=== PATIENT | female | born 1975 | race Two or more races ===

== ENCOUNTER 2023-06-25 18:42 | Inpatient (IN) | payer MEDICAID, OTHER ==
[~2023-06-25] VITALS: Ht 134.6 cm; Wt 62.0 kg
[2023-06-25 19:39] LABS: Basophils # (auto) 0.1 10 ^3/uL (0-0.2); Eosinophils # (auto) 0 10 ^3/uL (0-0.8); Hemoglobin 11.4 g/dL (12.2-16.2); Lymphocytes # (auto) 0.7 10 ^3/uL (0.4-5.4)
[2023-06-25 19:42] LABS: Basophils % (auto) 1.3 % (0.0-2.0); Hematocrit 35.4 % (36.0-46.0); Lymphocytes % (auto) 8.6 % (10.0-50.0); Mean Corpuscular Hemoglobin 28.2 pg (28.0-32.0); Mean Corpuscular Hgb Conc. 32.2 g/dL (32.0-36.0); Mean Corpuscular Volume 87.4 fL (80.0-100.0); Monocytes # (auto) 0.9 10 ^3/uL (0-1.3); Monocytes % (auto) 10.8 % (0.0-12.0); Neutrophils # (auto) 6.3 10 ^3/uL (1.6-8.6); Neutrophils % (auto) 79.3 % (37.0-80.0); Nucleated Red Blood Cells % 0.3 %; Red Blood Cells 4.05 10^6/uL (4.0-5.20); White Blood Cell 7.9 10^3/uL (4.4-10.8)
[2023-06-25 19:55] LABS: Alanine Aminotransferase 79 U/L (7-40); Albumin 4.5 g/dL (3.2-4.8); Alkaline Phosphatase 417 U/L (46-116); Anion Gap 21 (5-15); Aspartate Aminotransferase 330 U/L (13-40); BUN/Creatinine Ratio 5.7 (10.0-20.0); Blood Urea Nitrogen 6 mg/dL (9-23); Calcium 9.9 mg/dL (8.5-10.1); Carbon Dioxide 21 mmol/L (20-30); Chloride 94 mmol/L (98-107); Glucose 160 mg/dL (74-106); Sodium 136 mmol/L (136-145)
[2023-06-25 19:56] LABS: Bilirubin, Total 3.2 mg/dL (0.2-1.0); Total Protein 8.4 g/dL (5.7-8.2)
[2023-06-25 19:58] LABS: INR 1.23 (0.9-1.15); Partial Thromboplastin Time 27.1 SEC (24.5-34.5); Prothrombin Time 12.8 sec (9.3-11.8)
[2023-06-25] MEDS: ACETAMINOPHEN 325 MG TAB PO ONE (20:00)
[2023-06-25] MEDS: LORazepam 2MG/ML-1ML VIAL IV ONE (20:00)
[2023-06-25] MEDS: chlordiazePOXIDE HCL 25 MG CAP PO ONE (20:00)
[2023-06-25 21:18] LABS: Anisocytosis Slight; Platelet Estimate Decreased; Stomatocytes Few
[2023-06-25] MEDS: POTASSIUM CHL 20 Meq TABLET PO ONE (23:15)
[2023-06-25] MEDS ORDERED: NITROGLYCERIN 0.4 MG SL TAB SL PRN ×2 (23:30→23:45)
[2023-06-25] MEDS ORDERED: ONDANSETRON HCL 4 MG/2 ML VIAL IV PRN ×2 (23:30→23:45)
[2023-06-25] MEDS ORDERED: MORPHINE SULFATE INJ 2 MG/ml SYRG IV PRN ×2 (23:30→23:45)
[2023-06-25] MEDS ORDERED: chlordiazePOXIDE HCL 25 MG CAP PO PRN (23:30)
[2023-06-26] VITALS (7 sets, daily range): BP systolic 132–136; BP diastolic 82–89; PULSE 80–100; RESP 15–20; TEMP 97.9–99.4; O2SAT 94–100
[2023-06-26] MEDS: LACTULOSE 20Gm/30ML SOLN PO ONE ×2 (01:45→02:27)
[2023-06-26] MEDS: ONDANSETRON HCL 4 MG/2 ML VIAL IV ONE (02:28)
[2023-06-26] MEDS: chlordiazePOXIDE HCL 25 MG CAP PO ONE (02:29)
[2023-06-26] MEDS: POTASSIUM CHL 20 Meq TABLET PO ONE (02:29)
[2023-06-26] MEDS: SODIUM CHLORIDE 0.9% 1,000 ML IV ONE (02:30)
[2023-06-26] MEDS: ACETAMINOPHEN 325 MG TAB PO ONE (02:30)
[2023-06-26 05:09] LABS: Basophils # (auto) 0.1 10 ^3/uL (0-0.2); Eosinophils # (auto) 0 10 ^3/uL (0-0.8); Eosinophils % (auto) 0.3 % (0.0-7.0); Lymphocytes # (auto) 1.2 10 ^3/uL (0.4-5.4); Monocytes # (auto) 0.6 10 ^3/uL (0-1.3); Neutrophils # (auto) 4.2 10 ^3/uL (1.6-8.6); Nucleated Red Blood Cells % 0.2 %; White Blood Cell 6.1 10^3/uL (4.4-10.8)
[2023-06-26 05:12] LABS: Basophils % (auto) 1.2 % (0.0-2.0); Hematocrit 31.8 % (36.0-46.0); Hemoglobin 10.2 g/dL (12.2-16.2); Lymphocytes % (auto) 20.1 % (10.0-50.0); Mean Corpuscular Hemoglobin 28.2 pg (28.0-32.0); Mean Corpuscular Volume 88.2 fL (80.0-100.0); Monocytes % (auto) 9.9 % (0.0-12.0); Neutrophils % (auto) 68.5 % (37.0-80.0)
[2023-06-26 05:20] LABS: Red Cell Distribution Width 21.5 % (11.8-14.3)
[2023-06-26 05:34] LABS: Alanine Aminotransferase 60 U/L (7-40); Albumin 3.9 g/dL (3.2-4.8); Alkaline Phosphatase 346 U/L (46-116); Anion Gap 13 (5-15); Aspartate Aminotransferase 218 U/L (13-40); BUN/Creatinine Ratio 10.4 (10.0-20.0); Bilirubin, Total 2.3 mg/dL (0.2-1.0); Blood Urea Nitrogen 8 mg/dL (9-23); Calcium 9.3 mg/dL (8.5-10.1); Carbon Dioxide 26 mmol/L (20-30); Chloride 98 mmol/L (98-107); Glucose 99 mg/dL (74-106); Sodium 137 mmol/L (136-145); Total Protein 7.2 g/dL (5.7-8.2)
[2023-06-26] MEDS ORDERED: LACTULOSE 20Gm/30ML SOLN PO SCH (10:00)
[2023-06-26] MEDS ORDERED: PANTOPRAZOLE 40 MG TAB PO SCH (10:00)
[2023-06-26 10:21] LABS: Magnesium 1.4 mg/dL (1.6-2.6)
[2023-06-26 10:23] LABS: Phosphorus 2.6 mg/dL (2.4-5.1)
[2023-06-26] MEDS: LACTULOSE 20Gm/30ML SOLN PO SCH (10:28)
[2023-06-26] MEDS: PANTOPRAZOLE 40 MG TAB PO SCH (10:28)
[2023-06-26] MEDS: SODIUM CHLORIDE 0.9% 1,000 ML IV SCH (11:18)
[2023-06-26] MEDS: POTASSIUM CHLORIDE 20 MEQ, LIDOCAINE 1% (LOCAL ANESTH.) 2 ML in SODIUM CHL 0.9% 100 ML IV ONE (11:18)
[2023-06-26] MEDS: KETOROLAC TROMETH 30 MG/ML 1ML VIAL IV ONE (12:00)
[2023-06-26] MEDS: MAGNESIUM SULFATE 1GM/100ML 100 ML IV ONE ×2 (12:00→17:42)
[2023-06-26] MEDS: ERGOCALCIFEROL 50,000 UNIT(1.25MG) CAP PO SCH (12:24)
[2023-06-26] MEDS ORDERED: KETOROLAC TROMETH 30 MG/ML 1ML VIAL IV PRN (17:15)
[2023-06-26] MEDS: ACETAMINOPHEN 325 MG TAB PO PRN (17:42)
[2023-06-26] MEDS ORDERED: FOLIC ACID 1 MG, MAGNESIUM SULF SDV 50% 8 MEQ, MULTIPLE VITAMIN 10 ML, THIAMINE INJ 100... INJ SCH ×2 (18:00)
[2023-06-26] MEDS: FOLIC ACID 1 MG, MULTIPLE VITAMIN 10 ML, MAGNESIUM SULF SDV 50% 8 MEQ, THIAMINE INJ 100... INJ SCH (18:15)
[2023-06-26 21:30] LABS: Urine Amorphous Crystal FEW /hpf (None Seen); Urine Bacteria FEW /hpf (None Seen); Urine Blood 1+ /uL (Negative); Urine Clarity Ex.Turbid (Clear); Urine Color Dark-Orange (Yellow); Urine Mucus MODERATE (None Seen); Urine Protein, UAD 3+ (Negative); Urine Specific Gravity 1.031 (1.001-1.035); Urine Urobilinogen OVER mg/dL (Negative); Urine WBC 23 /hpf (0 - 5)
[2023-06-26] MEDS ORDERED: MORPHINE SULFATE 4 MG/ML SYR/VIAL IV PRN (21:30)
[2023-06-26 21:40] LABS: Amphetamine Screen, Urine Neg (NEGATIVE); Barbiturate Scree,Urine Neg (NEGATIVE); Benzodiazephine Screen, Urine Pos (NEGATIVE); Cannabinoid Screen, Urine Neg (NEGATIVE); Cocaine Screen, Urine Neg (NEGATIVE); Opiate Scree,Urine Neg (NEGATIVE); Phencyclidine Screen, Urine Neg (NEGATIVE)
[2023-06-27] VITALS (7 sets, daily range): BP systolic 114–149; BP diastolic 81–99; PULSE 85–122; RESP 16–19; TEMP 97.2–99; O2SAT 95–98
[2023-06-27 06:01] LABS: Eosinophils # (auto) 0.1 10 ^3/uL (0-0.8); Eosinophils % (auto) 1.2 % (0.0-7.0); Hematocrit 30.4 % (36.0-46.0); Hemoglobin 9.8 g/dL (12.2-16.2); Lymphocytes # (auto) 1.2 10 ^3/uL (0.4-5.4); Mean Corpuscular Hemoglobin 28.8 pg (28.0-32.0); Mean Corpuscular Hgb Conc. 32.3 g/dL (32.0-36.0); White Blood Cell 5.6 10^3/uL (4.4-10.8)
[2023-06-27 06:13] LABS: Basophils # (auto) 0.1 10 ^3/uL (0-0.2); Basophils % (auto) 1.2 % (0.0-2.0); Lymphocytes % (auto) 21.1 % (10.0-50.0); Mean Corpuscular Volume 89.2 fL (80.0-100.0); Monocytes # (auto) 0.5 10 ^3/uL (0-1.3); Monocytes % (auto) 9.4 % (0.0-12.0); Neutrophils # (auto) 3.8 10 ^3/uL (1.6-8.6); Neutrophils % (auto) 67.1 % (37.0-80.0); Nucleated Red Blood Cells % 0.2 %; Red Blood Cells 3.41 10^6/uL (4.0-5.20)
[2023-06-27 06:20] LABS: Alanine Aminotransferase 57 U/L (7-40); Albumin 3.5 g/dL (3.2-4.8); Alkaline Phosphatase 328 U/L (46-116); Anion Gap 8 (5-15); Aspartate Aminotransferase 257 U/L (13-40); Calcium 9.1 mg/dL (8.5-10.1); Carbon Dioxide 26 mmol/L (20-30); Chloride 99 mmol/L (98-107); Cholesterol 322 mg/dL (< 200); Glucose 104 mg/dL (74-106); HDL Cholesterol 61 mg/dL (40-59); LDL Cholesterol 240 mg/dL (< 100); Magnesium 2.1 mg/dL (1.6-2.6); Potassium 2.9 mmol/L (3.5-5.1); Sodium 133 mmol/L (136-145); Triglycerides 104 mg/dL (< 150)
[2023-06-27 06:21] LABS: Bilirubin, Total 2.3 mg/dL (0.2-1.0); Phosphorus 1.9 mg/dL (2.4-5.1); Total Protein 6.6 g/dL (5.7-8.2)
[2023-06-27 06:24] LABS: BUN/Creatinine Ratio 11.4 (10.0-20.0); Blood Urea Nitrogen < 5 mg/dL (9-23)
[2023-06-27 06:33] LABS: Red Cell Distribution Width 21.7 % (11.8-14.3)
[2023-06-27] MEDS: SUCRALFATE 1 GM/10 ML ORAL SUSP PO SCH (06:51)
[2023-06-27 07:14] LABS: Lipase 39 U/L (12-53)
[2023-06-27] MEDS ORDERED: ERGOCALCIFEROL 50,000 UNIT(1.25MG) CAP PO SCH (07:45)
[2023-06-27 07:46] LABS: Anisocytosis Moderate; Platelet Estimate Markedly Decreased
[2023-06-27 09:07] LABS: Ferritin 79.6 ng/mL (10-291)
[2023-06-27 09:25] LABS: Folate (Folic Acid) > 48.00 ng/mL (>5.38)
[2023-06-27 10:34] LABS: % Iron Saturation 14.4 % (15-50)
[2023-06-27] MEDS: chlordiazePOXIDE HCL 25 MG CAP PO PRN (11:05)
[2023-06-27] MEDS: POTASSIUM CHLORIDE 60 MEQ, LIDOCAINE 1% (LOCAL ANESTH.) 6 ML in SODIUM CHL 0.9% 500 ML IV ONE (11:06)
[2023-06-27] MEDS: LACTULOSE 20Gm/30ML SOLN PO SCH (11:06)
[2023-06-27] MEDS: POTASSIUM PHOSPHATE 22 MEQ in SODIUM CHL 0.9% 100 ML IV ONE (17:42)
[2023-06-28 01:00] VITALS: BP 118/78; PULSE 98; RESP 18; TEMP 98.1; O2SAT 96
[2023-06-28 05:00] VITALS: BP 131/87; PULSE 87; RESP 18; TEMP 98.2; O2SAT 96
[2023-06-28 06:28] LABS: Basophils # (auto) 0.1 10 ^3/uL (0-0.2); Basophils % (auto) 1.1 % (0.0-2.0); Eosinophils # (auto) 0.1 10 ^3/uL (0-0.8); Hematocrit 30.4 % (36.0-46.0); Hemoglobin 9.5 g/dL (12.2-16.2); Lymphocytes # (auto) 1.3 10 ^3/uL (0.4-5.4); Mean Corpuscular Hgb Conc. 31.3 g/dL (32.0-36.0); Monocytes # (auto) 0.5 10 ^3/uL (0-1.3); Nucleated Red Blood Cells % 0.2 %
[2023-06-28 06:31] LABS: Eosinophils % (auto) 1.6 % (0.0-7.0); Lymphocytes % (auto) 25.6 % (10.0-50.0); Mean Corpuscular Hemoglobin 28.3 pg (28.0-32.0); Mean Corpuscular Volume 90.5 fL (80.0-100.0); Monocytes % (auto) 10.4 % (0.0-12.0); Neutrophils # (auto) 3.2 10 ^3/uL (1.6-8.6); Neutrophils % (auto) 61.3 % (37.0-80.0); Red Blood Cells 3.36 10^6/uL (4.0-5.20); White Blood Cell 5.3 10^3/uL (4.4-10.8)
[2023-06-28 06:45] LABS: Alanine Aminotransferase 61 U/L (7-40); Albumin 3.1 g/dL (3.2-4.8); Alkaline Phosphatase 282 U/L (46-116); Anion Gap 7 (5-15); Calcium 8.5 mg/dL (8.7-10.4); Carbon Dioxide 24 mmol/L (20-30); Chloride 105 mmol/L (98-107); Glucose 112 mg/dL (74-106); Magnesium 1.7 mg/dL (1.6-2.6); Potassium 3.3 mmol/L (3.5-5.1); Sodium 136 mmol/L (136-145)
[2023-06-28 06:46] LABS: Aspartate Aminotransferase 223 U/L (13-40); Bilirubin, Total 1.3 mg/dL (0.2-1.0); Phosphorus 2.5 mg/dL (2.4-5.1)
[2023-06-28 06:51] LABS: BUN/Creatinine Ratio 15.2 (10.0-20.0); Blood Urea Nitrogen < 5 mg/dL (9-23)
[2023-06-28 07:01] LABS: Red Cell Distribution Width 22.3 % (11.8-14.3)
[2023-06-28] MEDS: POTASSIUM CHL 20 Meq TABLET PO ONE ×2 (07:30→08:39)
[2023-06-28] MEDS ORDERED: POTASSIUM CHL 20MEQ/100ML 100 ML IV ONE (07:30)
[2023-06-28 08:00] VITALS: PULSE 105
[2023-06-28] MEDS ORDERED: ERGO1CAP23 PO (08:09)
[2023-06-28] MEDS ORDERED: PANT40T PO (08:09)
[2023-06-28] MEDS ORDERED: POTA-36 PO (08:09)
[2023-06-28] MEDS ORDERED: SUCR1SUS26 PO (08:09)
[2023-06-28] MEDS ORDERED: LACT10SO3 PO (08:09)
[2023-06-28] MEDS ORDERED: GAB100C PO (08:09)
[2023-06-28 09:00] VITALS: BP 127/82; PULSE 97; RESP 16; TEMP 98.5; O2SAT 96
[2023-06-28] MEDS: POTASSIUM CHL 10 Meq TABLET PO SCH (10:28)
[2023-06-28 13:19] VITALS: BP 113/75; PULSE 90; RESP 16; TEMP 98.7; O2SAT 94
[2023-07-03] MEDS ORDERED: ERGOCALCIFEROL 50,000 UNIT(1.25MG) CAP PO SCH (16:00)
== END 2023-06-28 14:20 | disposition home or self-care (01) | DRG 52 ==
LOC: ER 18:42 → TELE 23:30 → ER 23:30 → TELE-CENTR 06-26 13:38
PROVIDERS: ADMIT Internal Medicine; ATTEND Emergency Medicine
DX: G92.8 Other toxic encephalopathy (principal); E72.4 Disorders of ornithine metabolism; K70.30 Alcoholic cirrhosis of liver without ascites; D69.6 Thrombocytopenia, unspecified; Y90.9 Presence of alcohol in blood, level not specified; F10.139 Alcohol abuse with withdrawal, unspecified; E87.6 Hypokalemia; E83.42 Hypomagnesemia; D64.9 Anemia, unspecified; I10 Essential (primary) hypertension; F41.9 Anxiety disorder, unspecified; K80.20 Calculus of gallbladder without cholecystitis without obstruction; K76.0 Fatty (change of) liver, not elsewhere classified; E78.5 Hyperlipidemia, unspecified
CPT/HCPCS: 36415; 70450; 71045; 76705; 80053; 80061; 80307; 80320; 81001; 81025; 82140; 82306; 82550; 82607; 82728; 82746; 83036; 83540; 83550; 83615; 83690; 83735; 83880; 84100; 84443; 84484; 85025; 85045; 85610; 85730; 93005; G0378; J1885; J2001; J2405

== ENCOUNTER 2023-08-15 23:38 | Inpatient (IN) | payer MEDICAID ==
[~2023-08-15] VITALS: Ht 160 cm; Wt 62.5 kg
[~2023-08-15 23:38] MED LIST: ERGO1CAP23 PO; GAB100C PO; LACT10SO3 PO; PANT40T PO; POTA-36 PO; SUCR1SUS26 PO
[2023-08-16] VITALS (8 sets, daily range): BP systolic 112–155; BP diastolic 58–92; PULSE 59–116; RESP 16–20; TEMP 97.9–98.9; O2SAT 95–100
[2023-08-16 00:27] LABS: Basophils # (auto) 0.1 10 ^3/uL (0-0.2); Eosinophils # (auto) 0 10 ^3/uL (0-0.8); Mean Corpuscular Volume 87.3 fL (80.0-100.0); Monocytes # (auto) 0.4 10 ^3/uL (0-1.3); Nucleated Red Blood Cells % 0.1 %; White Blood Cell 8.5 10^3/uL (4.4-10.8)
[2023-08-16 00:29] LABS: Basophils % (auto) 1.7 % (0.0-2.0); Hematocrit 36.3 % (36.0-46.0); Hemoglobin 11.9 g/dL (12.2-16.2); Lymphocytes # (auto) 1.1 10 ^3/uL (0.4-5.4); Lymphocytes % (auto) 12.9 % (10.0-50.0); Mean Corpuscular Hemoglobin 28.6 pg (28.0-32.0); Mean Corpuscular Hgb Conc. 32.8 g/dL (32.0-36.0); Neutrophils # (auto) 6.9 10 ^3/uL (1.6-8.6); Neutrophils % (auto) 80.4 % (37.0-80.0); Red Blood Cells 4.16 10^6/uL (4.0-5.20)
[2023-08-16 00:33] LABS: Chloride 97 mmol/L (98-107); Potassium 3.2 mmol/L (3.5-5.1); Sodium 139 mmol/L (136-145)
[2023-08-16 00:34] LABS: Anion Gap 30 (5-15); Carbon Dioxide 12 mmol/L (20-30)
[2023-08-16 00:35] LABS: Calcium 9.8 mg/dL (8.7-10.4)
[2023-08-16 00:38] LABS: Red Cell Distribution Width 26.3 % (11.8-14.3)
[2023-08-16 00:40] LABS: BUN/Creatinine Ratio 9.2 (10.0-20.0); Blood Urea Nitrogen 8 mg/dL (9-23); Glucose 117 mg/dL (74-106)
[2023-08-16] MEDS: SODIUM CHLORIDE 0.9% 1,000 ML IV ONE ×2 (01:27→02:01)
[2023-08-16] MEDS: THIAMINE 100mg/ml INJ (200mg/2ml VIAL) IV ONE (01:30)
[2023-08-16] MEDS: ONDANSETRON HCL 4 MG/2 ML VIAL IV ONE (01:30)
[2023-08-16 01:47] LABS: Anisocytosis Moderate; Platelet Estimate Decreased
[2023-08-16 01:48] LABS: Target Cell FEW
[2023-08-16] MEDS: POTASSIUM EFFERVESENT TAB 25 MEQ PO ONE (02:15)
[2023-08-16] MEDS: PROCHLORPERAZINE EDISYLATE 5 MG/ML 2ML VIAL IV ONE (04:28)
[2023-08-16] MEDS ORDERED: MORPHINE SULFATE INJ 2 MG/ml SYRG IV PRN ×2 (11:15)
[2023-08-16] MEDS ORDERED: DOCUSATE SOD 100 MG CAP PO PRN (11:15)
[2023-08-16] MEDS ORDERED: LORazepam 2MG/ML-1ML VIAL IV PRN (11:15)
[2023-08-16] MEDS ORDERED: NITROGLYCERIN 0.4 MG SL TAB SL PRN (11:15)
[2023-08-16 12:08] LABS: Magnesium 1.3 mg/dL (1.6-2.6)
[2023-08-16 12:09] LABS: Phosphorus 2.6 mg/dL (2.4-5.1)
[2023-08-16] MEDS: chlordiazePOXIDE HCL 25 MG CAP PO SCH (12:41)
[2023-08-16] MEDS: ONDANSETRON HCL 4 MG/2 ML VIAL IV PRN (12:43)
[2023-08-16] MEDS: SODIUM CHLORIDE 0.9% 1,000 ML IV SCH (12:47)
[2023-08-16] MEDS: ACETAMINOPHEN 325 MG TAB PO PRN (18:24)
[2023-08-16] MEDS: FOLIC ACID 1 MG, MAGNESIUM SULF SDV 50% 8 MEQ, MULTIPLE VITAMIN 10 ML, THIAMINE INJ 100... INJ SCH (18:26)
[2023-08-17] VITALS (7 sets, daily range): BP systolic 114–152; BP diastolic 72–88; PULSE 78–123; RESP 15–20; TEMP 97.9–98.4; O2SAT 94–98
[2023-08-17 05:00] LABS: Urine Bacteria FEW /hpf (None Seen); Urine Blood 2+ /uL (Negative); Urine Clarity Turbid (Clear); Urine Color Light-Orange (Yellow); Urine Mucus FEW (None Seen); Urine Protein, UAD 2+ (Negative); Urine Urobilinogen 12 mg/dL (Negative); Urine WBC 18 /hpf (0 - 5)
[2023-08-17 06:45] LABS: Basophils # (auto) 0 10 ^3/uL (0-0.2); Basophils % (auto) 0.9 % (0.0-2.0); Eosinophils # (auto) 0.1 10 ^3/uL (0-0.8); Monocytes # (auto) 0.3 10 ^3/uL (0-1.3); Neutrophils # (auto) 2.4 10 ^3/uL (1.6-8.6); White Blood Cell 3.9 10^3/uL (4.4-10.8)
[2023-08-17 06:48] LABS: Hematocrit 28.5 % (36.0-46.0); Hemoglobin 9.3 g/dL (12.2-16.2); Lymphocytes % (auto) 27.1 % (10.0-50.0); Mean Corpuscular Hemoglobin 28.2 pg (28.0-32.0); Mean Corpuscular Hgb Conc. 32.6 g/dL (32.0-36.0); Mean Corpuscular Volume 86.5 fL (80.0-100.0); Monocytes % (auto) 8.6 % (0.0-12.0); Neutrophils % (auto) 61.4 % (37.0-80.0); Nucleated Red Blood Cells % 0.4 %
[2023-08-17 07:12] LABS: Red Cell Distribution Width 26.3 % (11.8-14.3)
[2023-08-17 07:13] LABS: Alanine Aminotransferase 40 U/L (7-40); Albumin 3.4 g/dL (3.2-4.8); Alkaline Phosphatase 225 U/L (46-116); Anion Gap 9 (5-15); Aspartate Aminotransferase 128 U/L (13-40); Bilirubin, Total 1.8 mg/dL (0.2-1.0); Calcium 8.8 mg/dL (8.7-10.4); Carbon Dioxide 27 mmol/L (20-30); Chloride 101 mmol/L (98-107); Glucose 114 mg/dL (74-106); Potassium 2.7 mmol/L (3.5-5.1); Sodium 137 mmol/L (136-145)
[2023-08-17 07:14] LABS: Total Protein 6.2 g/dL (5.7-8.2)
[2023-08-17 07:22] LABS: BUN/Creatinine Ratio 8.5 (10.0-20.0); Blood Urea Nitrogen < 5 mg/dL (9-23)
[2023-08-17 08:27] LABS: Anisocytosis Slight; Platelet Estimate Decreased
[2023-08-17] MEDS: chlordiazePOXIDE HCL 25 MG CAP PO SCH (11:11)
[2023-08-17] MEDS: POTASSIUM CHL 20 Meq TABLET PO ONE (16:01)
[2023-08-17] MEDS: POTASSIUM CHLORIDE 40 MEQ, LIDOCAINE 1% (LOCAL ANESTH.) 4 ML in SODIUM CHL 0.9% 250 ML IV ONE (16:28)
[2023-08-18] VITALS (9 sets, daily range): BP systolic 116–141; BP diastolic 65–84; PULSE 79–108; RESP 17–21; TEMP 97.7–98.6; O2SAT 94–98
[2023-08-18] MEDS: LORazepam 2MG/ML-1ML VIAL IV PRN (04:06)
[2023-08-18 06:02] LABS: Basophils # (auto) 0 10 ^3/uL (0-0.2); Eosinophils # (auto) 0.1 10 ^3/uL (0-0.8); Monocytes # (auto) 0.4 10 ^3/uL (0-1.3); Monocytes % (auto) 9.9 % (0.0-12.0); Red Blood Cells 3.17 10^6/uL (4.0-5.20); White Blood Cell 4.5 10^3/uL (4.4-10.8)
[2023-08-18 06:09] LABS: Basophils % (auto) 0.7 % (0.0-2.0); Eosinophils % (auto) 1.4 % (0.0-7.0); Hematocrit 27.4 % (36.0-46.0); Hemoglobin 8.8 g/dL (12.2-16.2); Lymphocytes # (auto) 1.1 10 ^3/uL (0.4-5.4); Mean Corpuscular Hemoglobin 27.8 pg (28.0-32.0); Mean Corpuscular Hgb Conc. 32.1 g/dL (32.0-36.0); Mean Corpuscular Volume 86.5 fL (80.0-100.0); Neutrophils # (auto) 2.8 10 ^3/uL (1.6-8.6); Nucleated Red Blood Cells % 0.2 %
[2023-08-18 06:10] LABS: Alanine Aminotransferase 42 U/L (7-40); Albumin 3.4 g/dL (3.2-4.8); Alkaline Phosphatase 224 U/L (46-116); Anion Gap 8 (5-15); Aspartate Aminotransferase 139 U/L (13-40); Calcium 9.1 mg/dL (8.5-10.1); Carbon Dioxide 25 mmol/L (20-30); Chloride 106 mmol/L (98-107); Glucose 118 mg/dL (74-106); Magnesium 1.5 mg/dL (1.6-2.6); Phosphorus 0.8 mg/dL (2.4-5.1); Potassium 3.2 mmol/L (3.5-5.1); Sodium 139 mmol/L (136-145)
[2023-08-18 06:11] LABS: Bilirubin, Total 1.2 mg/dL (0.2-1.0); Total Protein 5.9 g/dL (5.7-8.2)
[2023-08-18 06:45] LABS: BUN/Creatinine Ratio 13.5 (10.0-20.0); Blood Urea Nitrogen < 5 mg/dL (9-23)
[2023-08-18 07:43] LABS: Red Cell Distribution Width 26.3 % (11.8-14.3)
[2023-08-18 09:13] LABS: Anisocytosis Slight; Platelet Estimate Decreased
[2023-08-18] MEDS: chlordiazePOXIDE HCL 25 MG CAP PO SCH (09:53)
[2023-08-19 01:00] VITALS: BP 134/83; PULSE 100; RESP 18; TEMP 98; O2SAT 98
[2023-08-19 05:00] VITALS: BP 155/91; PULSE 86; RESP 18; TEMP 98.2; O2SAT 96
[2023-08-19] MEDS: chlordiazePOXIDE HCL 25 MG CAP PO SCH (06:28)
[2023-08-19 08:00] VITALS: PULSE 77
[2023-08-19 09:00] VITALS: BP_SYST 115; BP_SYST 152; BP_DIAS 68; BP_DIAS 74; PULSE 83; PULSE 84; RESP 18; TEMP 97.9; O2SAT 96; O2SAT 98
[2023-08-19 13:00] VITALS: BP 140/77; PULSE 102; RESP 18; TEMP 97.9; O2SAT 97
== END 2023-08-19 17:55 | disposition home or self-care (01) | DRG 422 ==
LOC: ER 23:38 → TELE 08-16 11:09 → TELE-CENTR 08-16 12:28
PROVIDERS: ADMIT Nurse Practitioner Family; ATTEND Internal Medicine
DX: E86.0 Dehydration (principal); N17.0 Acute kidney failure with tubular necrosis; E87.29 Other acidosis; E87.6 Hypokalemia; F10.239 Alcohol dependence with withdrawal, unspecified; I10 Essential (primary) hypertension; F10.220 Alcohol dependence with intoxication, uncomplicated; Z88.0 Allergy status to penicillin; Y90.6 Blood alcohol level of 120-199 mg/100 ml; Z79.899 Other long term (current) drug therapy
CPT/HCPCS: 36415; 70450; 80048; 80053; 80320; 81001; 82140; 82607; 83735; 84100; 84702; 85025; 93005; 96361; 96374; 96375; 96376; G0378; J2001; J2405

== ENCOUNTER 2023-09-18 21:06 | Inpatient (IN) | payer MEDICAID ==
[~2023-09-18] VITALS: Ht 157.5 cm; Wt 62.5 kg
[2023-09-18 22:17] LABS: Basophils # (auto) 0.1 10 ^3/uL (0-0.2); Basophils % (auto) 2.3 % (0.0-2.0); Eosinophils # (auto) 0 10 ^3/uL (0-0.8); Eosinophils % (auto) 0.7 % (0.0-7.0); Hematocrit 35.8 % (36.0-46.0); Hemoglobin 11.6 g/dL (12.2-16.2); Lymphocytes # (auto) 2.2 10 ^3/uL (0.4-5.4); Lymphocytes % (auto) 36.5 % (10.0-50.0); Mean Corpuscular Hemoglobin 27.5 pg (28.0-32.0); Mean Corpuscular Hgb Conc. 32.4 g/dL (32.0-36.0); Mean Corpuscular Volume 84.7 fL (80.0-100.0); Monocytes # (auto) 0.4 10 ^3/uL (0-1.3); Monocytes % (auto) 6.3 % (0.0-12.0); Neutrophils # (auto) 3.2 10 ^3/uL (1.6-8.6); Neutrophils % (auto) 54.2 % (37.0-80.0); Platelet Count (auto) 69 10^3/uL (140-450); Red Blood Cells 4.23 10^6/uL (4.0-5.20); White Blood Cell 5.9 10^3/uL (4.4-10.8)
[2023-09-18 22:24] LABS: Red Cell Distribution Width 29.2 % (11.8-14.3)
[2023-09-18 22:31] LABS: Alanine Aminotransferase 87 U/L (7-40); Albumin 4.7 g/dL (3.2-4.8); Alkaline Phosphatase 327 U/L (46-116); Anion Gap 22 (5-15); Aspartate Aminotransferase 299 U/L (13-40); BUN/Creatinine Ratio 15.6 (10.0-20.0); Bilirubin, Total 1.6 mg/dL (0.2-1.0); Blood Urea Nitrogen 10 mg/dL (9-23); Calcium 9.4 mg/dL (8.7-10.4); Carbon Dioxide 21 mmol/L (20-30); Chloride 92 mmol/L (98-107); Glucose 80 mg/dL (74-106); Sodium 135 mmol/L (136-145); Total Protein 8.4 g/dL (5.7-8.2)
[2023-09-18 22:43] LABS: Lactic Acid w/Reflex 3.4 mmol/L (0.4-2.0)
[2023-09-18] MEDS: SODIUM CHLORIDE 0.9% 1,000 ML IV ONE (22:50)
[2023-09-18] MEDS: ONDANSETRON HCL 4 MG/2 ML VIAL IV ONE (22:50)
[2023-09-18] MEDS: FAMOTIDINE (10MG/ML) 2ML VL IV ONE (22:51)
[2023-09-19] MEDS: IOHEXOL 300 MG/ML 100ML BOTTLE IJ ONE (01:42)
[2023-09-19] MEDS ORDERED: MORPHINE SULFATE INJ 2 MG/ml SYRG IV PRN (05:45)
[2023-09-19] MEDS ORDERED: NITROGLYCERIN 0.4 MG SL TAB SL PRN (05:45)
[2023-09-19] MEDS: chlordiazePOXIDE HCL 25 MG CAP PO SCH (06:20)
[2023-09-19] MEDS: PANTOPRAZOLE 40 MG TAB PO SCH (06:20)
[2023-09-19] MEDS: SUCRALFATE 1 GM TAB PO SCH (07:27)
[2023-09-19 07:36] VITALS: PULSE 86; RESP 16; O2SAT 98
[2023-09-19] MEDS: POTASSIUM EFFERVESENT TAB 25 MEQ PO ONE (07:51)
[2023-09-19] MEDS: LACTULOSE 20Gm/30ML SOLN PO SCH (07:51)
[2023-09-19] MEDS: FOLIC ACID 1 MG TAB PO SCH (07:51)
[2023-09-19] MEDS: THIAMINE HCL 100 MG TAB PO SCH (07:51)
[2023-09-19] MEDS: FOLIC ACID 1 MG, MULTIPLE VITAMIN 10 ML, MAGNESIUM SULF SDV 50% 8 MEQ, THIAMINE INJ 100... INJ SCH (08:12)
[2023-09-19] MEDS: ONDANSETRON HCL 4 MG/2 ML VIAL IV PRN (08:16)
[2023-09-19 10:45] LABS: Urine Bacteria FEW /hpf (None Seen); Urine Blood 1+ /uL (Negative); Urine Clarity Clear (Clear); Urine Color Yellow (Yellow); Urine Mucus FEW (None Seen); Urine Protein, UAD 4+ (Negative); Urine Urobilinogen 4 mg/dL (Negative); Urine WBC 12 /hpf (0 - 5); Urine pH 6.5 (5.0-9.0)
[2023-09-19 11:15] LABS: Amphetamine Screen, Urine Neg (NEGATIVE); Barbiturate Scree,Urine Neg (NEGATIVE); Benzodiazephine Screen, Urine Pos (NEGATIVE); Cannabinoid Screen, Urine Neg (NEGATIVE); Cocaine Screen, Urine Neg (NEGATIVE); Opiate Scree,Urine Neg (NEGATIVE); Phencyclidine Screen, Urine Neg (NEGATIVE)
[2023-09-19 11:15] LABS: Alanine Aminotransferase 77 U/L (7-40); Alkaline Phosphatase 296 U/L (46-116); Anion Gap 17 (5-15); BUN/Creatinine Ratio 11.5 (10.0-20.0); Blood Urea Nitrogen 9 mg/dL (9-23); Calcium 9.2 mg/dL (8.7-10.4); Carbon Dioxide 24 mmol/L (20-30); Chloride 95 mmol/L (98-107); Glucose 116 mg/dL (74-106); Magnesium 1.8 mg/dL (1.6-2.6); Potassium 4.2 mmol/L (3.5-5.1); Sodium 136 mmol/L (136-145)
[2023-09-19 11:16] LABS: Albumin 4.5 g/dL (3.2-4.8); Aspartate Aminotransferase 231 U/L (13-40)
[2023-09-19 11:17] LABS: Bilirubin, Total 1.8 mg/dL (0.2-1.0); Total Protein 7.8 g/dL (5.7-8.2)
[2023-09-19 11:20] LABS: Urine Specific Gravity > 1.035 (1.001-1.035)
[2023-09-19] MEDS: LORazepam 0.5 MG TAB PO PRN (12:03)
[2023-09-19] MEDS: cefTRIAXone 1GM/50ML D5W 50 ML IV SCH (13:52)
[2023-09-19 14:18] VITALS: BP 136/86; PULSE 96; RESP 18; TEMP 98.3; O2SAT 100
[2023-09-19 15:10] VITALS: O2SAT 95
[2023-09-19 17:00] VITALS: BP 135/83; PULSE 90; RESP 18; TEMP 99; O2SAT 97
[2023-09-19 21:00] VITALS: BP 123/79; PULSE 90; RESP 19; TEMP 98.9; O2SAT 98
[2023-09-20 01:00] VITALS: BP 131/85; PULSE 84; RESP 19; TEMP 98.5; O2SAT 95
[2023-09-20 05:00] VITALS: BP 130/88; PULSE 82; RESP 18; TEMP 98.1; O2SAT 96
[2023-09-20 06:23] LABS: Alanine Aminotransferase 55 U/L (7-40); Alkaline Phosphatase 256 U/L (46-116); Anion Gap 7 (5-15); BUN/Creatinine Ratio 9.4 (10.0-20.0); Blood Urea Nitrogen 5 mg/dL (9-23); Carbon Dioxide 31 mmol/L (20-30); Chloride 94 mmol/L (98-107); Glucose 113 mg/dL (74-106); Potassium 3.1 mmol/L (3.5-5.1); Sodium 132 mmol/L (136-145)
[2023-09-20 06:24] LABS: Albumin 3.8 g/dL (3.2-4.8); Aspartate Aminotransferase 166 U/L (13-40); Bilirubin, Total 1.9 mg/dL (0.2-1.0); Total Protein 6.6 g/dL (5.7-8.2)
[2023-09-20 09:02] VITALS: BP 128/89; PULSE 93; RESP 16; TEMP 98.6; O2SAT 94
[2023-09-20 13:21] VITALS: BP 149/107; PULSE 114; RESP 16; TEMP 98.1; O2SAT 97
[2023-09-20] MEDS ORDERED: LORA-655 PO (13:43)
[2023-09-20] MEDS: MULTIPLE VITAMINS W/ MINERALS TAB PO ONE (15:56)
[2023-09-20] MEDS: THIAMINE HCL 100 MG TAB PO ONE (15:56)
[2023-09-20] MEDS: POTASSIUM CHL 20 Meq TABLET PO ONE (15:56)
[2023-09-20] MEDS: FOLIC ACID 1 MG TAB PO ONE (15:56)
[2023-09-21] MEDS ORDERED: MULTIPLE VITAMINS W/ MINERALS TAB PO SCH (10:00)
== END 2023-09-20 16:30 | disposition home or self-care (01) | DRG 422 ==
LOC: ER 21:06 → OVERFLOW 09-19 05:52 → WEST WING 09-19 14:15
PROVIDERS: ADMIT Nurse Practitioner; ATTEND Internal Medicine
DX: E86.0 Dehydration (principal); E87.20 Acidosis, unspecified; K70.30 Alcoholic cirrhosis of liver without ascites; K80.20 Calculus of gallbladder without cholecystitis without obstruction; E87.6 Hypokalemia; F10.939 Alcohol use, unspecified with withdrawal, unspecified; I10 Essential (primary) hypertension; Z88.0 Allergy status to penicillin; Z79.899 Other long term (current) drug therapy
CPT/HCPCS: 36415; 74177; 80053; 80307; 80320; 81001; 82140; 83605; 83735; 85025; 96361; 96365; 96375; G0378; J2405; J3490

== ENCOUNTER 2023-10-12 22:48 | Inpatient (IN) | payer MEDICAID ==
[~2023-10-12] VITALS: Ht 157.5 cm; Wt 67.0 kg
[~2023-10-12 22:48] MED LIST changes: +LORA-655 PO
[2023-10-12] MEDS ORDERED: IBUPROFEN 400 MG TAB PO ONE (23:30)
[2023-10-12] MEDS: HYDROcodone-ACET 5/325MG TAB PO ONE (23:39)
[2023-10-12 23:40] LABS: Basophils # (auto) 0.3 10 ^3/uL (0-0.2); Basophils % (auto) 3.6 % (0.0-2.0); Eosinophils # (auto) 0 10 ^3/uL (0-0.8); Eosinophils % (auto) 0.2 % (0.0-7.0); Hematocrit 34.6 % (36.0-46.0); Hemoglobin 10.9 g/dL (12.2-16.2); Lymphocytes % (auto) 13.4 % (10.0-50.0); Mean Corpuscular Hemoglobin 27.3 pg (28.0-32.0); Mean Corpuscular Hgb Conc. 31.4 g/dL (32.0-36.0); Mean Corpuscular Volume 87.1 fL (80.0-100.0); Monocytes # (auto) 0.5 10 ^3/uL (0-1.3); Monocytes % (auto) 6.5 % (0.0-12.0); Neutrophils # (auto) 5.7 10 ^3/uL (1.6-8.6); Neutrophils % (auto) 76.3 % (37.0-80.0); Nucleated Red Blood Cells % 0.1 %; Red Blood Cells 3.97 10^6/uL (4.0-5.20); White Blood Cell 7.5 10^3/uL (4.4-10.8)
[2023-10-12 23:48] LABS: Red Cell Distribution Width 27.1 % (11.8-14.3)
[2023-10-12] MEDS: ONDANSETRON ODT 4 MG TAB PO ONE (23:48)
[2023-10-12 23:49] LABS: Platelet Count (auto) 67 10^3/uL (140-450)
[2023-10-12 23:54] LABS: Alanine Aminotransferase 77 U/L (7-40); Albumin 4.6 g/dL (3.2-4.8); Alkaline Phosphatase 441 U/L (46-116); Anion Gap 28 (5-15); Aspartate Aminotransferase 309 U/L (13-40); BUN/Creatinine Ratio 4.9 (10.0-20.0); Bilirubin, Total 1.8 mg/dL (0.2-1.0); Blood Alcohol 174.8 mg/dL (<10); Blood Urea Nitrogen 8 mg/dL (9-23); Calcium 9.2 mg/dL (8.7-10.4); Carbon Dioxide 12 mmol/L (20-30); Chloride 98 mmol/L (98-107); Glucose 99 mg/dL (74-106); Potassium 2.9 mmol/L (3.5-5.1); Sodium 138 mmol/L (136-145); Total Protein 8.4 g/dL (5.7-8.2)
[2023-10-13 00:09] VITALS: PULSE 107; RESP 18; O2SAT 96
[2023-10-13 00:12] LABS: Lactic Acid w/Reflex 3.9 mmol/L (0.4-2.0)
[2023-10-13] MEDS ORDERED: HYDROmorphone HCL 2 MG/ML VL/or syr IV PRN (01:45)
[2023-10-13] MEDS ORDERED: DOCUSATE SOD 100 MG CAP PO PRN (01:45)
[2023-10-13 03:04] VITALS: PULSE 104; RESP 20; O2SAT 99
[2023-10-13] MEDS: POTASSIUM EFFERVESENT TAB 25 MEQ PO ONE (03:41)
[2023-10-13] MEDS: LACTULOSE 20Gm/30ML SOLN PO ONE (03:44)
[2023-10-13] MEDS: ONDANSETRON HCL 4 MG/2 ML VIAL IV ONE (03:44)
[2023-10-13] MEDS: SOD CHL 0.9%/ KCL 40MEQ 1,000 ML IV ONE (03:46)
[2023-10-13] MEDS: SODIUM CHLORIDE 0.9% 500 ML IV ONE (03:48)
[2023-10-13 05:03] LABS: Basophils # (auto) 0.2 10 ^3/uL (0-0.2); Eosinophils # (auto) 0 10 ^3/uL (0-0.8); Hemoglobin 10.1 g/dL (12.2-16.2); Lymphocytes # (auto) 0.4 10 ^3/uL (0.4-5.4); Monocytes # (auto) 0.3 10 ^3/uL (0-1.3); Nucleated Red Blood Cells % 0.1 %; Platelet Count (auto) 54 10^3/uL (140-450)
[2023-10-13 05:05] LABS: Basophils % (auto) 3.4 % (0.0-2.0); Eosinophils % (auto) 0.1 % (0.0-7.0); Hematocrit 32.2 % (36.0-46.0); Lymphocytes % (auto) 6.2 % (10.0-50.0); Mean Corpuscular Hemoglobin 27.9 pg (28.0-32.0); Mean Corpuscular Hgb Conc. 31.3 g/dL (32.0-36.0); Neutrophils # (auto) 5.7 10 ^3/uL (1.6-8.6); Neutrophils % (auto) 85.3 % (37.0-80.0); Red Blood Cells 3.62 10^6/uL (4.0-5.20); White Blood Cell 6.7 10^3/uL (4.4-10.8)
[2023-10-13 05:07] LABS: Alanine Aminotransferase 78 U/L (7-40); Albumin 4.3 g/dL (3.2-4.8); Alkaline Phosphatase 411 U/L (46-116); Anion Gap 28 (5-15); Aspartate Aminotransferase 291 U/L (13-40); BUN/Creatinine Ratio 7.4 (10.0-20.0); Blood Urea Nitrogen 10 mg/dL (9-23); Calcium 8.7 mg/dL (8.7-10.4); Carbon Dioxide 11 mmol/L (20-30); Chloride 101 mmol/L (98-107); Glucose 90 mg/dL (74-106); Potassium 3.3 mmol/L (3.5-5.1); Sodium 140 mmol/L (136-145)
[2023-10-13 05:08] LABS: Total Protein 7.8 g/dL (5.7-8.2)
[2023-10-13 05:46] LABS: Red Cell Distribution Width 27.1 % (11.8-14.3)
[2023-10-13] MEDS: GABAPENTIN 100 MG CAP PO SCH (06:18)
[2023-10-13] MEDS: LACTULOSE 20Gm/30ML SOLN PO SCH (06:18)
[2023-10-13] MEDS: LORazepam 2MG/ML-1ML VIAL IV PRN (06:18)
[2023-10-13] MEDS: SODIUM CHLOR 0.9% PF (SALINE LOCK) 10ML VIAL/SYR IV SCH (06:18)
[2023-10-13 07:40] VITALS: PULSE 106; RESP 24; O2SAT 96
[2023-10-13 07:51] LABS: Anisocytosis Moderate; Platelet Estimate Decreased
[2023-10-13] MEDS: SUCRALFATE 1 GM/10 ML ORAL SUSP PO SCH (08:06)
[2023-10-13 08:52] LABS: Urine Bacteria None Seen /hpf (None Seen)
[2023-10-13 09:36] LABS: Urine Blood 2+ /uL (Negative); Urine Clarity Turbid (Clear); Urine Color Yellow (Yellow); Urine Hyaline Cast MANY /lpf (0 - 2); Urine Mucus FEW (None Seen); Urine Protein, UAD 3+ (Negative); Urine Urobilinogen 3 mg/dL (Negative); Urine WBC 18 /hpf (0 - 5)
[2023-10-13] MEDS ORDERED: PANTOPRAZOLE 40 MG TAB PO SCH (10:00)
[2023-10-13] MEDS: ONDANSETRON HCL 4 MG/2 ML VIAL IV PRN (12:25)
[2023-10-13] MEDS: PANTOPRAZOLE 40 MG/10 ML VIAL INJ IV SCH (12:25)
[2023-10-13] MEDS: rifAXIMin 550 MG TAB PO SCH (12:35)
[2023-10-13] MEDS: THIAMINE HCL 100 MG TAB PO SCH (12:35)
[2023-10-13] MEDS: FOLIC ACID 1 MG TAB PO SCH (12:35)
[2023-10-13] MEDS: ACETAMINOPHEN 325 MG TAB PO PRN (15:32)
[2023-10-13 19:18] VITALS: BP 158/77; PULSE 96; RESP 19; TEMP 99.4; O2SAT 100
[2023-10-13] MEDS ORDERED: LISI10TA34 PO (19:39)
[2023-10-13 21:00] VITALS: BP 147/81; PULSE 79; RESP 18; TEMP 99.3; O2SAT 99
[2023-10-14] VITALS (7 sets, daily range): BP systolic 127–137; BP diastolic 65–91; PULSE 79–101; RESP 17–21; TEMP 98.4–100; O2SAT 95–98
[2023-10-14 06:39] LABS: Basophils # (auto) 0.1 10 ^3/uL (0-0.2); Eosinophils # (auto) 0.1 10 ^3/uL (0-0.8); Neutrophils # (auto) 1.9 10 ^3/uL (1.6-8.6)
[2023-10-14 06:43] LABS: Basophils % (auto) 2.2 % (0.0-2.0); Eosinophils % (auto) 2.1 % (0.0-7.0); Hematocrit 28.4 % (36.0-46.0); Hemoglobin 9.4 g/dL (12.2-16.2); Lymphocytes # (auto) 1.5 10 ^3/uL (0.4-5.4); Lymphocytes % (auto) 38.1 % (10.0-50.0); Mean Corpuscular Hemoglobin 28.4 pg (28.0-32.0); Mean Corpuscular Volume 86.1 fL (80.0-100.0); Monocytes # (auto) 0.4 10 ^3/uL (0-1.3); Monocytes % (auto) 9.6 % (0.0-12.0); Nucleated Red Blood Cells % 0.3 %; Platelet Count (auto) 37 10^3/uL (140-450); White Blood Cell 3.9 10^3/uL (4.4-10.8)
[2023-10-14 06:50] LABS: Alanine Aminotransferase 56 U/L (7-40); Albumin 3.7 g/dL (3.2-4.8); Alkaline Phosphatase 368 U/L (46-116); Anion Gap 12 (5-15); Aspartate Aminotransferase 182 U/L (13-40); BUN/Creatinine Ratio 7.7 (10.0-20.0); Bilirubin, Total 1.7 mg/dL (0.2-1.0); Blood Urea Nitrogen 6 mg/dL (9-23); Calcium 9.5 mg/dL (8.7-10.4); Carbon Dioxide 22 mmol/L (20-30); Chloride 103 mmol/L (98-107); Glucose 90 mg/dL (74-106); Magnesium 1.4 mg/dL (1.6-2.6); Potassium 2.7 mmol/L (3.5-5.1); Sodium 137 mmol/L (136-145)
[2023-10-14 06:51] LABS: Total Protein 6.9 g/dL (5.7-8.2)
[2023-10-14 06:52] LABS: Red Cell Distribution Width 27.5 % (11.8-14.3)
[2023-10-14 08:00] LABS: Platelet Estimate Decreased
[2023-10-14 08:01] LABS: Anisocytosis Moderate
[2023-10-14] MEDS: MAGNESIUM SULFATE 1GM/100ML 100 ML IV ONE (10:39)
[2023-10-14] MEDS: POTASSIUM CHL 20 Meq TABLET PO SCH (10:41)
[2023-10-14] MEDS: POTASSIUM CHL 20MEQ/100ML 100 ML IV ONE (12:42)
[2023-10-14 18:13] LABS: Chloride 100 mmol/L (98-107); Potassium 3.7 mmol/L (3.5-5.1); Sodium 133 mmol/L (136-145)
[2023-10-14 18:14] LABS: Anion Gap 8 (5-15); Carbon Dioxide 25 mmol/L (20-30)
[2023-10-14 18:15] LABS: Calcium 9.7 mg/dL (8.7-10.4)
[2023-10-14 18:20] LABS: BUN/Creatinine Ratio 8.5 (10.0-20.0); Blood Urea Nitrogen 6 mg/dL (9-23); Glucose 109 mg/dL (74-106)
[2023-10-14] MEDS: HYDROcodone-ACET 5/325MG TAB PO PRN (23:46)
[2023-10-15] VITALS (7 sets, daily range): BP systolic 127–144; BP diastolic 85–92; PULSE 81–96; RESP 17–20; TEMP 97–100.4; O2SAT 96–97
[2023-10-15 07:16] LABS: Basophils # (auto) 0.1 10 ^3/uL (0-0.2); Eosinophils # (auto) 0.1 10 ^3/uL (0-0.8); Hemoglobin 10.1 g/dL (12.2-16.2); Monocytes # (auto) 0.3 10 ^3/uL (0-1.3); Neutrophils # (auto) 2.3 10 ^3/uL (1.6-8.6); Platelet Count (auto) 42 10^3/uL (140-450)
[2023-10-15 07:20] LABS: Basophils % (auto) 1.3 % (0.0-2.0); Eosinophils % (auto) 3.1 % (0.0-7.0); Hematocrit 30.6 % (36.0-46.0); Lymphocytes % (auto) 26.7 % (10.0-50.0); Mean Corpuscular Hemoglobin 28.2 pg (28.0-32.0); Mean Corpuscular Hgb Conc. 33.1 g/dL (32.0-36.0); Mean Corpuscular Volume 85.2 fL (80.0-100.0); Neutrophils % (auto) 60.9 % (37.0-80.0); Nucleated Red Blood Cells % 0.3 %; Red Blood Cells 3.59 10^6/uL (4.0-5.20); White Blood Cell 3.7 10^3/uL (4.4-10.8)
[2023-10-15 07:30] LABS: Red Cell Distribution Width 26.7 % (11.8-14.3)
[2023-10-15 07:42] LABS: Alanine Aminotransferase 59 U/L (7-40); Albumin 3.7 g/dL (3.2-4.8); Alkaline Phosphatase 367 U/L (46-116)
[2023-10-15 07:43] LABS: Anion Gap 5 (5-15); Aspartate Aminotransferase 204 U/L (13-40); Bilirubin, Total 1.4 mg/dL (0.2-1.0); Calcium 9.9 mg/dL (8.7-10.4); Carbon Dioxide 28 mmol/L (20-30); Chloride 100 mmol/L (98-107); Glucose 117 mg/dL (74-106); Magnesium 1.5 mg/dL (1.6-2.6); Potassium 3.1 mmol/L (3.5-5.1); Sodium 133 mmol/L (136-145); Total Protein 6.7 g/dL (5.7-8.2)
[2023-10-15 07:44] LABS: BUN/Creatinine Ratio 10.9 (10.0-20.0); Blood Urea Nitrogen < 5 mg/dL (9-23)
[2023-10-15] MEDS: POTASSIUM EFFERVESENT TAB 25 MEQ PO ONE (12:30)
[2023-10-15] MEDS: MAGNESIUM SULFATE 1GM/100ML 100 ML IV ONE (12:30)
[2023-10-15 15:24] LABS: Prothrombin Time 12.5 sec (9.3-11.8)
[2023-10-15 15:25] LABS: INR 1.17 (0.9-1.15)
[2023-10-15] MEDS: SOD CHL 0.9%/ KCL 20MEQ 1,000 ML IV SCH (16:16)
[2023-10-16] VITALS (8 sets, daily range): BP systolic 120–142; BP diastolic 83–93; PULSE 85–95; RESP 17–21; TEMP 98.5–99.4; O2SAT 96–97
[2023-10-16] MEDS: PANTOPRAZOLE 40 MG TAB PO SCH (06:03)
[2023-10-16 06:30] LABS: Basophils # (auto) 0 10 ^3/uL (0-0.2); Eosinophils # (auto) 0.1 10 ^3/uL (0-0.8); Hemoglobin 9.9 g/dL (12.2-16.2); Monocytes # (auto) 0.4 10 ^3/uL (0-1.3); Neutrophils # (auto) 2.1 10 ^3/uL (1.6-8.6); Neutrophils % (auto) 60.1 % (37.0-80.0); Nucleated Red Blood Cells % 0.1 %; Red Blood Cells 3.48 10^6/uL (4.0-5.20); White Blood Cell 3.5 10^3/uL (4.4-10.8)
[2023-10-16 06:33] LABS: Basophils % (auto) 1.1 % (0.0-2.0); Eosinophils % (auto) 2.8 % (0.0-7.0); Hematocrit 30.3 % (36.0-46.0); Lymphocytes # (auto) 0.9 10 ^3/uL (0.4-5.4); Mean Corpuscular Hemoglobin 28.6 pg (28.0-32.0); Mean Corpuscular Hgb Conc. 32.8 g/dL (32.0-36.0); Mean Corpuscular Volume 87.1 fL (80.0-100.0); Platelet Count (auto) 48 10^3/uL (140-450)
[2023-10-16 06:37] LABS: Alanine Aminotransferase 62 U/L (7-40); Albumin 3.7 g/dL (3.2-4.8); Alkaline Phosphatase 360 U/L (46-116); Anion Gap 5 (5-15); Aspartate Aminotransferase 198 U/L (13-40); Bilirubin, Total 1.1 mg/dL (0.2-1.0); Calcium 9.5 mg/dL (8.7-10.4); Carbon Dioxide 29 mmol/L (20-30); Chloride 101 mmol/L (98-107); Glucose 96 mg/dL (74-106); Magnesium 1.7 mg/dL (1.6-2.6); Potassium 3.8 mmol/L (3.5-5.1); Sodium 135 mmol/L (136-145); Total Protein 6.7 g/dL (5.7-8.2)
[2023-10-16 06:38] LABS: BUN/Creatinine Ratio 11.1 (10.0-20.0); Blood Urea Nitrogen < 5 mg/dL (9-23)
[2023-10-16 06:42] LABS: Red Cell Distribution Width 27.4 % (11.8-14.3)
[2023-10-16] MEDS: MAGNESIUM OXIDE 400 MG TAB PO ONE (16:35)
[2023-10-17] MEDS ORDERED: ESCI5TAB PO (14:18)
[2023-10-17] MEDS ORDERED: TRAZ-228 PO (14:19)
[2023-10-19] MEDS ORDERED: ERGOCALCIFEROL 50,000 UNIT(1.25MG) CAP PO SCH (10:00)
[2023-10-19 17:06] LABS: Vitamin B1, Whole Blood 112.9 nmol/L (66.5-200.0)
== END 2023-10-16 18:00 | disposition home or self-care (01) | DRG 280 ==
LOC: ER 22:48 → WEST WING 10-13 01:38 → TELE 10-13 01:38 → TELE-WESTW 10-13 19:31 → WEST WING 10-15 17:40
PROVIDERS: ADMIT Internal Medicine Geriatric Medicine; ATTEND Internal Medicine Geriatric Medicine
DX: K70.30 Alcoholic cirrhosis of liver without ascites (principal); N17.9 Acute kidney failure, unspecified; E87.20 Acidosis, unspecified; D69.6 Thrombocytopenia, unspecified; N13.30 Unspecified hydronephrosis; K76.82 Hepatic encephalopathy; S09.8XXA Other specified injuries of head, initial encounter; D64.9 Anemia, unspecified; R74.01 Elevation of levels of liver transaminase levels; F41.9 Anxiety disorder, unspecified; R45.851 Suicidal ideations; F10.10 Alcohol abuse, uncomplicated; F32.9 Major depressive disorder, single episode, unspecified; I10 Essential (primary) hypertension; R04.0 Epistaxis; Z79.899 Other long term (current) drug therapy; Z88.0 Allergy status to penicillin; W18.39XA Other fall on same level, initial encounter; Y93.89 Activity, other specified; Y92.89 Other specified places as the place of occurrence of the external cause; Y99.8 Other external cause status; Y90.6 Blood alcohol level of 120-199 mg/100 ml
CPT/HCPCS: 36415; 70450; 70486; 72125; 76700; 80048; 80053; 80320; 81001; 82140; 82962; 83605; 83735; 84425; 84484; 85025; 85610; 85730; 87081; G0378; J2405; J2470; J3480; Q0162

== ENCOUNTER 2023-11-07 09:39 | Inpatient (IN) | payer MEDICAID ==
[~2023-11-07] VITALS: Ht 160 cm; Wt 98.0 kg
[~2023-11-07 09:39] MED LIST changes: +ESCI5TAB PO; +LISI10TA34 PO; +TRAZ-228 PO
[2023-11-07] MEDS: ONDANSETRON HCL 4 MG/2 ML VIAL IV ONE ×2 (10:50→13:43)
[2023-11-07] MEDS: SODIUM CHLORIDE 0.9% 1,000 ML IV ONE (10:50)
[2023-11-07 11:01] LABS: Basophils # (auto) 0 10 ^3/uL (0-0.2); Basophils % (auto) 0.4 % (0.0-2.0); Eosinophils # (auto) 0 10 ^3/uL (0-0.8); Hematocrit 31.6 % (36.0-46.0); Hemoglobin 10.1 g/dL (12.2-16.2); Lymphocytes # (auto) 0.5 10 ^3/uL (0.4-5.4); Lymphocytes % (auto) 4.3 % (10.0-50.0); Mean Corpuscular Hemoglobin 27.3 pg (28.0-32.0); Mean Corpuscular Volume 85.3 fL (80.0-100.0); Monocytes # (auto) 0.5 10 ^3/uL (0-1.3); Monocytes % (auto) 4.3 % (0.0-12.0); Neutrophils # (auto) 10.4 10 ^3/uL (1.6-8.6); Platelet Count (auto) 65 10^3/uL (140-450); White Blood Cell 11.4 10^3/uL (4.4-10.8)
[2023-11-07 11:06] LABS: Red Cell Distribution Width 26.2 % (11.8-14.3)
[2023-11-07 11:12] LABS: Alanine Aminotransferase 64 U/L (7-40); Albumin 4.9 g/dL (3.2-4.8); Alkaline Phosphatase 385 U/L (46-116); Anion Gap 34.00001 (5-15); Aspartate Aminotransferase 254 U/L (13-40); BUN/Creatinine Ratio 7.6 (10.0-20.0); Blood Alcohol < 3.0 mg/dL (<10); Blood Urea Nitrogen 8 mg/dL (9-23); Calcium 9.7 mg/dL (8.7-10.4); Chloride 94 mmol/L (98-107); Glucose 98 mg/dL (74-106); Potassium 3.1 mmol/L (3.5-5.1); Sodium 138 mmol/L (136-145)
[2023-11-07 11:13] LABS: Bilirubin, Total 2.4 mg/dL (0.2-1.0); Total Protein 8.6 g/dL (5.7-8.2)
[2023-11-07 11:16] LABS: Carbon Dioxide < 10 mmol/L (20-31)
[2023-11-07 11:27] LABS: Lipase 29 U/L (12-53)
[2023-11-07 12:32] LABS: Base Excess -12.4 mmol/L (-2.0-3.0)
[2023-11-07 14:27] LABS: Urine Bacteria None Seen /hpf (None Seen)
[2023-11-07 14:40] LABS: Urine Blood 1+ /uL (Negative); Urine Clarity Clear (Clear); Urine Color Yellow (Yellow); Urine Hyaline Cast MANY /lpf (0 - 2); Urine Mucus FEW (None Seen); Urine Protein, UAD 3+ (Negative); Urine Specific Gravity 1.018 (1.001-1.035); Urine Urobilinogen 2 mg/dL (Negative); Urine WBC 2 /hpf (0 - 5)
[2023-11-07 14:47] LABS: Amphetamine Screen, Urine Neg (NEGATIVE); Barbiturate Scree,Urine Neg (NEGATIVE); Benzodiazephine Screen, Urine Neg (NEGATIVE); Cannabinoid Screen, Urine Neg (NEGATIVE); Cocaine Screen, Urine Neg (NEGATIVE); Opiate Scree,Urine Neg (NEGATIVE); Phencyclidine Screen, Urine Neg (NEGATIVE)
[2023-11-07] MEDS: chlordiazePOXIDE HCL 25 MG CAP PO SCH (15:15)
[2023-11-07] MEDS: FOLIC ACID 1 MG, MULTIPLE VITAMIN 10 ML, MAGNESIUM SULF SDV 50% 8 MEQ, THIAMINE INJ 100... INJ SCH (18:00)
[2023-11-07 19:24] VITALS: PULSE 88; RESP 21; O2SAT 98
[2023-11-07] MEDS: SODIUM BICARB 50mEq/50ml Vial 50 ML in SOD CHL 0.45% 1,000 ML IV ONE (19:45)
[2023-11-07] MEDS ORDERED: hydrALAZINE HCL 20 MG/ML VL IV PRN (22:15)
[2023-11-07] MEDS ORDERED: DOCUSATE SOD 100 MG CAP PO PRN (22:15)
[2023-11-07] MEDS ORDERED: HYDROcodone-ACET 5/325MG TAB PO PRN (22:15)
[2023-11-07] MEDS: POTASSIUM CHL 20 Meq TABLET PO ONE (22:30)
[2023-11-07] MEDS: ONDANSETRON HCL 4 MG/2 ML VIAL IV PRN (22:30)
[2023-11-07] MEDS ORDERED: MORPHINE SULFATE INJ 2 MG/ml SYRG IV PRN (23:15)
[2023-11-07] MEDS ORDERED: NITROGLYCERIN 0.4 MG SL TAB SL PRN (23:15)
[2023-11-08] MEDS: SODIUM CHLOR 0.9% PF (SALINE LOCK) 10ML VIAL/SYR IV SCH (06:00)
[2023-11-08 06:08] LABS: Basophils # (auto) 0 10 ^3/uL (0-0.2); Eosinophils # (auto) 0.1 10 ^3/uL (0-0.8); Mean Corpuscular Hemoglobin 27.8 pg (28.0-32.0); Red Blood Cells 3.29 10^6/uL (4.0-5.20); White Blood Cell 5.1 10^3/uL (4.4-10.8)
[2023-11-08 06:13] LABS: Basophils % (auto) 0.6 % (0.0-2.0); Eosinophils % (auto) 1.7 % (0.0-7.0); Hematocrit 28.3 % (36.0-46.0); Hemoglobin 9.1 g/dL (12.2-16.2); Lymphocytes # (auto) 1.6 10 ^3/uL (0.4-5.4); Lymphocytes % (auto) 31.9 % (10.0-50.0); Mean Corpuscular Hgb Conc. 32.3 g/dL (32.0-36.0); Mean Corpuscular Volume 85.9 fL (80.0-100.0); Monocytes # (auto) 0.5 10 ^3/uL (0-1.3); Monocytes % (auto) 9.9 % (0.0-12.0); Neutrophils # (auto) 2.9 10 ^3/uL (1.6-8.6); Neutrophils % (auto) 55.9 % (37.0-80.0); Nucleated Red Blood Cells % 0.1 %; Platelet Count (auto) 34 10^3/uL (140-450)
[2023-11-08 06:25] LABS: Potassium 3.4 mmol/L (3.5-5.1); Sodium 139 mmol/L (136-145)
[2023-11-08 06:28] LABS: Anion Gap 14 (5-15); Calcium 9.2 mg/dL (8.7-10.4); Carbon Dioxide 20 mmol/L (20-31)
[2023-11-08 06:29] LABS: Red Cell Distribution Width 25.7 % (11.8-14.3)
[2023-11-08 06:33] LABS: Glucose 77 mg/dL (74-106)
[2023-11-08 06:34] LABS: Alkaline Phosphatase 313 U/L (46-116)
[2023-11-08 06:35] LABS: Alanine Aminotransferase 44 U/L (7-40); Albumin 3.9 g/dL (3.2-4.8); Aspartate Aminotransferase 155 U/L (13-40); Bilirubin, Total 1.8 mg/dL (0.2-1.0); Total Protein 6.9 g/dL (5.7-8.2)
[2023-11-08 06:36] LABS: BUN/Creatinine Ratio 6.6 (10.0-20.0); Blood Urea Nitrogen < 5 mg/dL (9-23); Chloride 105 mmol/L (98-107)
[2023-11-08 07:34] LABS: Anisocytosis Moderate; Platelet Estimate Decreased
[2023-11-08] MEDS: POTASSIUM EFFERVESENT TAB 25 MEQ PO ONE (09:30)
[2023-11-08] MEDS: chlordiazePOXIDE HCL 25 MG CAP PO SCH (10:00)
[2023-11-08] MEDS: LACTULOSE 20Gm/30ML SOLN PO SCH (10:00)
[2023-11-08] MEDS: PANTOPRAZOLE 40 MG/10 ML VIAL INJ IV SCH (10:00)
[2023-11-08 14:54] LABS: % Iron Saturation 19.1 % (15-50)
[2023-11-08 19:10] VITALS: PULSE 110; RESP 21; O2SAT 96
[2023-11-09] VITALS (8 sets, daily range): BP systolic 123–148; BP diastolic 71–90; PULSE 83–106; RESP 17–21; TEMP 98–98.7; O2SAT 96–99
[2023-11-09 03:48] LABS: Basophils # (auto) 0 10 ^3/uL (0-0.2); Eosinophils # (auto) 0.1 10 ^3/uL (0-0.8); Lymphocytes # (auto) 1.3 10 ^3/uL (0.4-5.4); Mean Corpuscular Hemoglobin 28.3 pg (28.0-32.0); Monocytes # (auto) 0.3 10 ^3/uL (0-1.3); Neutrophils # (auto) 2.8 10 ^3/uL (1.6-8.6); Platelet Count (auto) 34 10^3/uL (140-450); White Blood Cell 4.6 10^3/uL (4.4-10.8)
[2023-11-09 03:49] LABS: Anion Gap 5 (5-15); Calcium 9.5 mg/dL (8.7-10.4); Carbon Dioxide 27 mmol/L (20-31); Chloride 103 mmol/L (98-107); Sodium 135 mmol/L (136-145)
[2023-11-09 03:50] LABS: Basophils % (auto) 0.8 % (0.0-2.0); Eosinophils % (auto) 1.9 % (0.0-7.0); Hematocrit 26.6 % (36.0-46.0); Hemoglobin 8.8 g/dL (12.2-16.2); Lymphocytes % (auto) 28.4 % (10.0-50.0); Mean Corpuscular Volume 85.8 fL (80.0-100.0); Monocytes % (auto) 7.4 % (0.0-12.0); Neutrophils % (auto) 61.5 % (37.0-80.0); Nucleated Red Blood Cells % 0.4 %; Red Cell Distribution Width 26.8 % (11.8-14.3)
[2023-11-09 03:54] LABS: Glucose 121 mg/dL (74-106)
[2023-11-09 03:55] LABS: BUN/Creatinine Ratio 8.3 (10.0-20.0); Blood Urea Nitrogen 5 mg/dL (9-23)
[2023-11-09 04:32] LABS: Hypochromia Slight; Stomatocytes Few
[2023-11-09 04:33] LABS: Anisocytosis Moderate; Hypochromia Slight; Platelet Estimate Decreased; Stomatocytes Few
[2023-11-09] MEDS: chlordiazePOXIDE HCL 25 MG CAP PO SCH (08:42)
[2023-11-09] MEDS: POTASSIUM CHLORIDE 60 MEQ, LIDOCAINE 1% (LOCAL ANESTH.) 6 ML in SODIUM CHL 0.9% 500 ML IV ONE (08:43)
[2023-11-09 12:19] LABS: Albumin 3.7 g/dL (3.2-4.8); Bilirubin, Direct 0.7 mg/dL (<0.3); Bilirubin, Total 1.4 mg/dL (0.2-1.0); Magnesium 1.7 mg/dL (1.6-2.6); Total Protein 6.4 g/dL (5.7-8.2)
[2023-11-09 15:43] LABS: INR 1.18 (0.9-1.15); Partial Thromboplastin Time 25.4 SEC (24.5-34.5); Prothrombin Time 12.4 sec (9.3-11.8)
[2023-11-09] MEDS: MAGNESIUM SULFATE 1GM/100ML 100 ML IV SCH (16:08)
[2023-11-09] MEDS: IBUPROFEN 600 MG TAB PO PRN (21:20)
[2023-11-09] MEDS: LACTULOSE 20Gm/30ML SOLN PO SCH (21:20)
[2023-11-10 01:00] VITALS: BP 115/64; PULSE 88; RESP 20; TEMP 96.6; O2SAT 98
[2023-11-10 05:00] VITALS: BP 140/95; PULSE 103; RESP 20; TEMP 97.8; O2SAT 98
[2023-11-10] MEDS: chlordiazePOXIDE HCL 25 MG CAP PO SCH (06:33)
[2023-11-10 08:00] VITALS: PULSE 81
[2023-11-10 09:00] VITALS: BP 114/76; PULSE 91; RESP 18; TEMP 97.5; O2SAT 96
[2023-11-10 10:46] LABS: Basophils # (auto) 0 10 ^3/uL (0-0.2); Basophils % (auto) 0.7 % (0.0-2.0); Eosinophils # (auto) 0.1 10 ^3/uL (0-0.8); Hemoglobin 8.8 g/dL (12.2-16.2); Lymphocytes # (auto) 0.7 10 ^3/uL (0.4-5.4); Mean Corpuscular Volume 87.1 fL (80.0-100.0); Monocytes # (auto) 0.4 10 ^3/uL (0-1.3); Nucleated Red Blood Cells % 0.1 %
[2023-11-10 10:48] LABS: Eosinophils % (auto) 2.2 % (0.0-7.0); Hematocrit 26.9 % (36.0-46.0); Lymphocytes % (auto) 15.6 % (10.0-50.0); Mean Corpuscular Hemoglobin 28.4 pg (28.0-32.0); Mean Corpuscular Hgb Conc. 32.6 g/dL (32.0-36.0); Monocytes % (auto) 9.7 % (0.0-12.0); Neutrophils # (auto) 3.1 10 ^3/uL (1.6-8.6); Neutrophils % (auto) 71.8 % (37.0-80.0); Platelet Count (auto) 39 10^3/uL (140-450); Red Blood Cells 3.09 10^6/uL (4.0-5.20); White Blood Cell 4.3 10^3/uL (4.4-10.8)
[2023-11-10 11:02] LABS: Alanine Aminotransferase 54 U/L (7-40); Albumin 3.8 g/dL (3.2-4.8); Alkaline Phosphatase 282 U/L (46-116); Anion Gap 7 (5-15); Aspartate Aminotransferase 161 U/L (13-40); BUN/Creatinine Ratio 16.3 (10.0-20.0); Blood Urea Nitrogen 7 mg/dL (9-23); Calcium 9.1 mg/dL (8.7-10.4); Carbon Dioxide 27 mmol/L (20-31); Chloride 106 mmol/L (98-107); Glucose 124 mg/dL (74-106); Magnesium 1.8 mg/dL (1.6-2.6); Potassium 3.6 mmol/L (3.5-5.1); Sodium 140 mmol/L (136-145); Total Protein 6.4 g/dL (5.7-8.2)
[2023-11-10 11:06] LABS: Red Cell Distribution Width 26.3 % (11.8-14.3)
[2023-11-10] MEDS: IRON SUCROSE COMPLEX 100 ML IV SCH (11:56)
[2023-11-10 13:08] VITALS: BP 108/76; PULSE 92; RESP 21; TEMP 99; O2SAT 97
[2023-11-10 16:57] VITALS: BP 138/81; PULSE 86; RESP 17; TEMP 98.4; O2SAT 99
[2023-11-11 08:42] LABS: Hepatitis B Surface Antigen Negative (Negative)
[2023-11-11 09:03] LABS: Hepatitis A Ab IgM Negative; Hepatitis B Core IgM Negative
[2023-11-11 09:04] LABS: Hepatitis C Antibody Negative (Negative)
== END 2023-11-10 19:28 | disposition home health service (06) | DRG 280 ==
LOC: ER 09:39 → TELE 23:10 → TELE-WESTW 11-09 05:55
PROVIDERS: ADMIT Internal Medicine; ATTEND Internal Medicine
DX: K70.30 Alcoholic cirrhosis of liver without ascites (principal); K70.10 Alcoholic hepatitis without ascites; D69.6 Thrombocytopenia, unspecified; E87.20 Acidosis, unspecified; E72.20 Disorder of urea cycle metabolism, unspecified; D64.9 Anemia, unspecified; E87.6 Hypokalemia; S50.02XA Contusion of left elbow, initial encounter; I10 Essential (primary) hypertension; S80.12XA Contusion of left lower leg, initial encounter; S80.11XA Contusion of right lower leg, initial encounter; K76.0 Fatty (change of) liver, not elsewhere classified; K59.00 Constipation, unspecified; F10.139 Alcohol abuse with withdrawal, unspecified; Z88.0 Allergy status to penicillin; Z82.49 Family history of ischemic heart disease and other diseases of the circulatory system; W01.0XXA Fall on same level from slipping, tripping and stumbling without subsequent striking against object, initial encounter; Y93.89 Activity, other specified; Y92.89 Other specified places as the place of occurrence of the external cause; Y99.8 Other external cause status; Y90.0 Blood alcohol level of less than 20 mg/100 ml
CPT/HCPCS: 36415; 36600; 70450; 73070; 76705; 80048; 80053; 80074; 80076; 80307; 80320; 81001; 82010; 82140; 82270; 82607; 82728; 82746; 82805; 83540; 83550; 83615; 83690; 83735; 85025; 85045; 85610; 85730; 93306; 93886; 96374; 96376; 97110; 97116; 97163; 97530; 99291; G0378; J1756; J2001; J2405; J2470